=== PATIENT | male | born 1980 | race Hispanic/Latino ===

== ENCOUNTER 2017-04-29 04:16 | Emergency (ER) | payer OTHER ==
[2017-04-29 04:22] VITALS: BP 131/83; PULSE 84; RESP 18; TEMP 97.4; O2SAT 99
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
== END 2017-04-29 06:03 ==
LOC: H.ER 04:16
DX: Z02.89 Encounter for other administrative examinations (principal); I86.1 Scrotal varices